=== PATIENT | male | born 1995 | race Asian ===

== ENCOUNTER 2020-03-24 23:10 | Emergency (ER) | payer OTHER ==
[~2020-03-24] VITALS: Ht 172.7 cm; Wt 69.5 kg
[2020-03-25] MEDS ORDERED: DiphenhydrAMINE HCL 25 MG CAPSULE PO ONE (03:15)
[2020-03-25] MEDS ORDERED: DEXAMETHASONE 4 MG TABLET PO ONE (04:00)
[2020-03-25 04:26] VITALS: BP 133/77
== END 2020-03-25 04:30 | disposition home or self-care (01) ==
LOC: EMS 23:10
DX: T78.40XA Allergy, unspecified, initial encounter (principal); M79.671 Pain in right foot; M79.89 Other specified soft tissue disorders; X58.XXXA Exposure to other specified factors, initial encounter
CPT/HCPCS: 73630; 99283; J8540